=== PATIENT | female | born 1960 | race Hispanic/Latino ===

== ENCOUNTER 2016-12-14 09:25 | Day surgery (SDC) | payer OTHER ==
[2016-12-14 06:17] VITALS: BMI 29.2
[2016-12-14 10:18] LABS: CHLORIDE 106 mmol/L (98-107); SODIUM 141 mmol/L (132-148)
[2016-12-14 10:21] LABS: BLOOD UREA NITROGEN 12 mg/dL (7-17); CARBON DIOXIDE 23 mmol/L (22-30); GFR AFRICAN-AMERICAN > 60; GLUCOSE,RANDOM 91 mg/dL (65-105)
[2016-12-14 10:22] LABS: CALCIUM 7.8 mg/dl (8.6-10.4); POTASSIUM 4.1 mmol/L (3.6-5.2)
[2016-12-14] MEDS ORDERED: Midazolam 2 MG/2 ML VIAL IVP ONE (10:26)
[2016-12-14] MEDS ORDERED: Midazolam 2 MG/2 ML VIAL ONE (11:04)
[2016-12-14] MEDS ORDERED: Propofol 10 mg/ml Inj (20 ML) ONE (11:08)
[2016-12-14] MEDS ORDERED: HYDROmorphone 0.5 mg/0.5 ml ISec IVP PRN (11:53)
[2016-12-14 12:12] VITALS: O2SAT 100
[2016-12-14 13:08] VITALS: BP 134/81; PULSE 71; RESP 18; TEMP 97.5
--- NOTE | 2016-12-15 21:07 | PCM.SURG1 ---
Surgeon's Initial Post Op Note - Surgeon's Notes Surgeon: Melinda Schmidt MD Sole Blacker: none Type of Anesthesia: General LMA Pre-Operative Diagnosis: Endometerial hyperplasia, abnormla uterien bleeding Operative Findings: 8 -10 week size utuers, no adnexal masses, uteurs sounded to 7cm, thickened atrophic endometrium noted throughout cvity, bilateral ostia visuzlied, tounge like mass noted attached anterior floating freely within cavity with polypoid masses attachend anteior closer to cervical os removed with myosure device Post-Operative Diagnosis: Same as above, endometrial mass Operation Performed: Operative hysteroscopy, Fractional dilation and Currettage Specimen/Specimens Removed: Endocervical currettings, endometrial currettings, endometrial mass (from myosure) Estimated Blood Loss: EBL {In ML}: 10 Blood Products Given: N/A Drains Used: No Drains Post-Op Condition: Good Date of Surgery/Procedure: 12/15/16 Time of Surgery/Procedure: 11:00
--- NOTE | 2016-12-18 14:24 | OP ---
PROCEDURE DATE: 12/14/2016 SURGEON: Dr. Melinda Schmidt EDUCATION REVIEWER: None. TYPE OF ANESTHESIA: General LMA. PREOPERATIVE DIAGNOSES: Endometrial hyperplasia, simple without atypia, abnormal uterine bleeding. OPERATIVE FINDINGS: An 8-10 week size uterus, no adnexal masses, uterus sounded to 7 cm, thickened a trophic endometrium noted throughout the cavity, bilateral ostia visualized, tongue-like mass noted i n the center, attached anterior, floating freely within the cavity with polypoid masses attached ante rior and close to the cervical os, removed with MyoSure device. POSTOPERATIVE DIAGNOSES: Endometrial hyperplasia, simple without atypia, abnormal uterine bleeding. With endometrial mass. OPERATION PERFORMED: Operative hysteroscopy, fractional dilation and curettage. SPECIMEN REMOVED: Endocervical curettings, endometrial curettings, endometrial mass which was from M yoSure device. ESTIMATED BLOOD LOSS: 10 mL. BLOOD PRODUCTS: None. COMPLICATIONS: None. The patient was taken to the operating where she was given general anesthesia. Once this was found t o be adequate, she was positioned on the operating table in dorsal supine position with legs supporte d using stirrups. The patient was then prepped and draped in normal sterile fashion. Timeout was pe rformed to confirm correct patient and correct procedure. Red rubber catheter was then in the bladder, 20 mL of clear yellow urine were obtained. Bimanual exam was performed with above-mentioned findings. A Schrader retractor was placed in the anterior, posterior fornix of vagina. The cervix was adequately visualized. Single tooth tenaculum was placed on the anterior lip of the cervix and endoc ervical curettings were obtained with a Jesusian curette and sent to pathology on [facility]. The uterus was then sounded to 7 cm and the cervix was sequentially dilated to allow for introduction of the hy steroscope under direct visualization using normal saline as the distending media. Upon introduction , there was a mass-like tongue-like projection noted within the cavity, freely floating with bilatera l ostia visualized. The MyoSure device was then inserted and the mass was then removed under direct visualization. Following this, a gentle curettage was done 360 degrees until a gritty texture was no dilshad and this was the endometrial curettings. The single tooth tenaculum was removed and there was go od hemostasis at the tenaculum puncture sites. All instruments were removed and there was good hemos tasis. At the end of the procedure, all instruments, sponge and needle counts were noted to be corre ct x 2. The patient tolerated the procedure well and was transferred to the recovery room in stable condition. Melinda Schmidt MD cc: [id number] TT: 12/18/2016 14:23:31 en
== END 2016-12-14 13:09 | disposition home or self-care (01) ==
LOC: C.SDS 09:25
PROVIDERS: ATTEND Obstetrics & Gynecology
DX: N85.8 Other specified noninflammatory disorders of uterus (principal); N85.00 Endometrial hyperplasia, unspecified; N85.9 Noninflammatory disorder of uterus, unspecified; N93.9 Abnormal uterine and vaginal bleeding, unspecified; F41.9 Anxiety disorder, unspecified; I10 Essential (primary) hypertension; Z90.10 Acquired absence of unspecified breast and nipple; Z80.49 Family history of malignant neoplasm of other genital organs; Z80.0 Family history of malignant neoplasm of digestive organs; Z82.49 Family history of ischemic heart disease and other diseases of the circulatory system; F17.210 Nicotine dependence, cigarettes, uncomplicated; Z87.898 Personal history of other specified conditions; Z88.1 Allergy status to other antibiotic agents; Z91.011 Allergy to milk products; M19.90 Unspecified osteoarthritis, unspecified site; E78.5 Hyperlipidemia, unspecified; M75.02 Adhesive capsulitis of left shoulder
CPT/HCPCS: 36415; 58558; 80048; 88305; J1100; J1170; J1885; J2001; J2250; J2405; J2704; J3010